=== PATIENT | female | born 1955 | race Caucasian/White ===

== ENCOUNTER 2025-01-24 09:36 | Outpatient (CLI) | payer MEDICARE, SELFPAY ==
--- NOTE | 2025-01-24 | ECHO_ITS ---
Patient Info Name: Ginette Glez Age: 69 years : 1955 Gender: Female Ht: 66 in Wt: 174 lbs BSA: 1.94 m2 BP: 160 / 91 mmHg Technical Quality: Good Exam Date: 01/24/2025 10:18 AM Patient Status: O Admit Date: 01/24/2025 Exam Type: CA echo doppler color flow Complete two-dimensional, color flow and Doppler transthoracic echocardiogram is performed. [employer] Supervisor: Estefani Taveras Attending Provider: Gayatri Haines Summary 1. Complete two-dimensional, color flow and Doppler transthoracic echocardiogram is performed. 2. There is normal biventricular size and systolic function. 3. There is severe aortic stenosis. Left Ventricle The left ventricle is normal in size and systolic function. There is concentric left ventricular remodeling. The left ventricular ejection fraction is visually estimated to be 60-65%. Right Ventricle The right ventricle is normal in size and systolic function. Left Atria The left atrium is normal size. Right Atria The right atrium is normal size. Atrial Septum The atrial septum is visually intact. Aortic Valve The aortic valve is trileaflet and calcified. There is severe aortic stenosis. There is mild aortic regurgitation. Pulmonic Valve The pulmonic valve is not well visualized. There is trace pulmonic valve regurgitation. Mitral Valve The mitral valve leaflets are normal. There is mitral annular calcification. There is trace mitral regurgitation. Tricuspid Valve The tricuspid valve is normal. There is trace tricuspid regurgitation. Pericardium/Pleural Pericardium is normal in appearance with no evidence for significant pericardial effusion. Inferior Vena Cava Normal inferior vena cava with >50% collapse upon inspiration consistent with normal right atrial pressure, 3 mmHg. Aorta The aortic root at the level of the sinus of Valsalva measures 2.7 cm in diameter. Left Ventricular Outflow Tract Name Value Normal LVOT 2D LVOT Diameter 2.0 cm LVOT Doppler LVOT Peak Velocity 99 cm/s LVOT Peak Gradient 3 mmHg LVOT Mean Gradient 2 mmHg LVOT VTI 27 cm LVOT VTI/AV VTI Ratio 0.3 LVOT Stroke Volume 86 ml LVOT CO 5.7 l/min LVOT CI 2.9 l/min/m2 Pulmonic Valve Name Value Normal RVOT Doppler RVOT Peak Velocity 98 cm/s RVOT Peak Gradient 4 mmHg PV Doppler PV Peak Velocity 98 cm/s PV Peak Gradient 4 mmHg Mitral Valve Name Value Normal MV Diastolic Function MV E Peak Velocity 90 cm/s MV A Peak Velocity 136 cm/s MV E/A 0.7 MV Decel Time (PW) 322 ms MV Annular TDI MV E/e' (Septal) 16.2 MV E/e' (Lateral) 17.1 MV E/e' (Average) 16.6 Tricuspid Valve Name Value Normal Estimated PAP/RSVP RA Pressure 3 mmHg <=5 Aortic Valve Name Value Normal AV Doppler AV Peak Velocity 433 cm/s AV Peak Gradient 50 mmHg AV Mean Gradient 28 mmHg AV VTI 110 cm AV Area (Cont Eq VTI) 0.8 cm2 >=3.0 AV Area (Cont Eq Michelet) 0.7 cm2 AV DI (Michelet) 0.23 AV Regurgitation 2D LVOT Area 3.1 cm2 Ventricles Name Value Normal LV Dimensions 2D/MM IVS Diastolic Thickness (2D) 1.1 cm 0.6-1.0 LVID Diastole (2D) 4.4 cm 3.8-5.2 LVIW Diastolic Thickness (2D) 1.1 cm 0.6-0.9 LVID Systole (2D) 3.0 cm 2.2-3.5 LVOT Diameter 2.0 cm LV Mass (2D Cubed) 171.00 g 67.00-162.00 LV Mass Index (2D Cubed) 88 g/m2 43-95 Relative Wall Thickness (2D) 0.52 <=0.42 LV Fractional Shortening/Ejection Fraction 2D/MM LV Fractional Shortening (2D) 32 % 27-45 LV EF (2D Teichholz) 61 % LV Diastolic Volume (4C MOD) 84 ml LV EF (4C MOD) 58 % LV Diastolic Volume (2C MOD) 80 ml LV EF (2C MOD) 52 % LV Diastolic Volume (BP MOD) 82 ml 46-106 LV Diastolic Volume Index (BP MOD) 43 ml/m2 29-61 LV Systolic Volume (BP MOD) 37 ml 14-42 LV Systolic Volume Index (BP MOD) 19 ml/m2 8-24 LV EF (BP MOD) 55 % 54-74 LV Diastolic Length (4C) 8.3 cm LV Systolic Length (4C) 7.0 cm LV Stroke Volume (4C MOD) 49 ml Atria Name Value Normal LA Dimensions LA Volume (4C A-L) 55 ml LA Volume (BP A-L) 59 ml RA Dimensions RA Systolic Major Hepzibah Length (4C) 4.8 cm 2.2-2.8 RA Area (4C) 12.4 cm2 <=18.0 Report Signatures
--- OUTSIDE RECORDS SUMMARY | 2025-01-24 10:21 | XMS_ITS | Data Portability ---
Author Organization ROBERTO Blaze MÉNDEZ Address [address] [place] [address] Care Team Providers Care Pastoral Counselor Name Role Phone PAT BABB Hvac Installer [phone] Assessment No assessment recorded. Plan of Treatment Reminders Order Date Submit Date Provider Last Modified By Organization Details Last Modified Time Details Appointments None recorded . Lab Hepatiti s C IgG Ab, qual, serum 2024 025 [facility], [address] [place] [address], [place] [address], [place], [address], 11:17:33 lipid panel, serum 2024 025 [facility], [address] [place] [address], [place] [address], [place], [address], 11:17:34 CMP, serum or plasma 2024 025 [facility], [address] [place] [address], [place] [address], [place], [address], 11:17:36 CBC w/ auto diff 2024 025 [facility], [address] [place] [address], [place] [address], [place], [address], 11:17:44 urinalys is macro (dipstic k) panel, urine 2024 025 [facility] [place] [facility], [address], [address], [place], [address], 5 18:00:08 TSH, ultra-se nsitive, serum 2024 025 [facility], [address] [facility], [address], [place], [address], 5 11:17:41 HbA1c (hemoglo bin A1c), blood 2024 025 [facility], [address], [address], [place], [address], 5 11:17:43 lipid panel, serum 2020 021 [facility], [address] [facility], [address], [place], [address], 1 11:23:22 CMP, serum or plasma 2020 021 [facility], [address] [facility], [address], [place], [address], 1 11:23:[address] referral 2024 025 parul Polo MD, [address] [facility] [address], [place], [address], 5 10:20:13 Procedures None recorded . Surgeries None recorded . Imaging MAMMO, screenin g, digital, bilatera l [id number] [place] [address] (Imaging), [address] [facility] [address], [place], [address], 5 16:30:13 DEXA 2024 025 [facility] (Imaging), [address], [place], [address], 5 16:13:27 US, echocard iogram, transtho racic, complete , w/ color flow - Heart Murmur, history of Syncope 2024 025 [facility] (Imaging), [address] [facility], [place], [address], 5 16:13:26 bone density [address] ([facility]), [address] [place], [address], 3 14:03:42 MAMMO, screenin g, bilatera l [address] ([facility]), [address] [place], [address], 3 14:03:41 XR, humerus, 2 or more view 2019 020 [facility] ([facility]), [address] [place], [address], 0 12:20:45 MAMMO, screenin g, bilatera l 2019 020 [facility] ([facility]), [address] [place], [address], 0 15:24:54 Medication Orders levothyr oxine 50 mcg tablet 2020 021 [facility], [address] [facility], [place], [address], 5 10:57:58 compound ed medicati on 2019 020 [facility] #[id number], [address] [facility] [place], [id number], 0 16:55:56 multivit abreu tablet 2019 020 [facility] #10389, [address], [place], [place], [id number], 1 11:01:54 Calcium with Vitamin D 600 mg-10 mcg (400 unit) tablet 2019 020 [facility] #92607, [address], [place], [place], [id number], 1 11:01:00 levothyr oxine 50 mcg tablet 2019 020 [facility] #03245, [address], [place], [place], [id number], 5 10:57:58 Patient TargetsNo targets recorded. Patient Instructions Encounter Date Encounter Id Patient Instructions Last Modified By Organization Details Last Modified Time 11/01/2019 [id number] mammogram: about this test mwasserman Not available 11/01/2019 15:14:31 learning about menopause mwasserman Not available 11/01/2019 15:32:02 chronic obstructive pulmonary disease (COPD): care instructions mwasserman Not available 11/01/2019 15:45:47 learning about copd and how to prevent lung infections mwasserman Not available 11/01/2019 15:45:47 07/03/2021 [id number] hypothyroidism: care instructions [email or web address] Not available 07/03/2021 11:23:19 07/22/2022 [id number] well visit, over 65: care instructions Not available 07/22/2022 12:04:29 learning about breast cancer screening Not available 07/22/2022 12:05:06 KISHA Guo Discussed with ELIZABETH Márquezopassemmett Not available 07/22/2022 12:23:46 12/21/2024 [id number] mammogram: about this test oajao Not available 12/21/2024 11:27:54 hypothyroidism: care instructions oajao Not available 12/21/2024 11:29:12 heart murmur: care instructions oajao Not available 12/21/2024 11:27:54 Labs TTE GI DEXA MMG Shingrix/Prevnar 20 on her next visit Follow up in 8 weeks oajao Not available 12/21/2024 15:06:54 Reason for Referral Bed Placement Coordinator Referral for Tubular adenomatous polyp of colon Tubular adenoma 04/07/2016, history of a previous syncopal event po Referring Physician: Gayatri Haines, Internal Medicine, Encounter Date: 12/21/2024 Results Created Date Observation Date Name Description Value Unit Range Abnormal Flag Note LastModifiedBy Organization Detail LastModifiedTime 07/17/20 20 07/17/2020 MAMMO , scree ray, bilat eral No observ ation record ed. [facility] [address] [place], [address], 08/07/2020 10:25:08 07/17/20 20 07/17/2020 XR, humer us, 2 or more view No observ ation record ed. [facility] [address] [place], [address], 07/17/2020 15:11:33 07/17/20 20 07/17/2020 XR, humer us, 2 or more view No observ ation record ed. [facility] ([facility]) [address] [place], [address], 07/23/2020 16:18:54 Result Notes None recorded. Problems Name Problem SNOMED Code Status Onset Date Resolution Date Notes Provider Name and Address Organization Details Recorded Time Hypothyroidism 86910366 Active Delmy Escudero MD Attn: Sherryfranky montes,[address] [facility], [place], [address], [facility] 7 10:59:25 Menopausal and postmenopausal disorders 857940867 Active Zachary Mao null, [place] - [facility] 6 11:23:24 Tinea corporis 37241159 Active Delmy Escudero MD Attn: Accountin g,[address] [place], [place], [address] [place] [address] 2, [place] - [facility] 5 10:31:26 Anterior knee pain 940997832 Active Delmy Escudero MD Attn: Accountin g,[address] [place], [place], [address] [place] [address] 2, [place] [facility] 5 10:31:26 Obesity 824486281 Active Gayatri Haines MD Attn: Accountin g,[address] [place], [address] [place] [address] 2, [place] [facility] 5 11:18:02 Onychomycosis 257211679 Active Delmy Escudero MD Attn: Accountin g,[address] [place], [address] [place] [address] 2, [place] [facility] 5 10:31:26 Tinnitus 26215584 Active Delmy Escudero MD Attn: Accountin g,[address] [place], [address] [place] [address] 2, [place] [facility] 5 10:31:26 Menopause present 234935841 Active Delmy Escudero MD Attn: Accountin g,[address] [place], [address] [place] [address] 2, [place] - [facility] 6 11:14:11 Hypercholester olemia 01055328 Active 2024 Gayatri Haines MD Attn: Accountin g,[address] [place], [address] [place] [address] 2, [place] [facility] 5 15:05:19 Tubular adenomatous polyp of colon 904653412 Active 2024 Gayatri Haines MD Attn: Accountin g,[address] [place], [address] [place] [address] 2, [place] - [facility] 5 15:05:23 Granulomatosis Active Delmy Escudero MD Attn: Xi montes,[address], [place], [address], [facility] 6 11:14:11 Skin lesion 56866950 Active Delmy Escudero MD Attn: Xi montes,[address], [place], [address], [facility] 6 11:14:11 Problem Notes None recorded. Procedures Surgical History Date Name Laterality Status Provider Name and Address Organization Details Recorded Time 07/17/20 20 Date of Last Mammogram completed Portia Schneider MA [facility] 07/22/2022 11:50:32 04/07/20 16 screening colonoscopy completed Gayatri Haines MD Attn: Accounting,[address] [facility], [place], [address], [facility] 12/21/2024 11:05:40 03/22/20 16 Most Recent Mammogram completed Jamaica Lang MA [facility] 11/01/2019 15:12:12 11/08/19 15 Date of Last Pap Smear completed Jamaica Lang MA [facility] 11/01/2019 15:11:57 08/15/18 90 Oophorectomy completed Loli Soto MA [facility] 11/06/2014 11:08:28 08/15/18 70 Appendectomy completed Loli Soto MA [facility] 11/06/2014 11:08:28 excision of bunion completed Gayatri Haines MD Attn: Accounting,[address] [facility], [place], [address], [facility] 12/21/2024 11:03:04 operation on shoulder joint completed Gayatri Haines MD Attn: Accounting,[address] [facility], [place], [address], [facility] 12/21/2024 11:03:16 decompression of median nerve completed Gayatri Haines MD Attn: Accounting,[address] [facility], [place], [address], [facility] 12/21/2024 11:03:31 Imaging Results None recorded. Procedure Notes None recorded. Medical Equipment None Reported. Allergies No known drug allergies Medications Name Sig Start Date Stop Date Status Note LastModified by Organization Details LastModified Time compounded medication APPLY 0.2ML TWICE DAILY active Not Available Not Available No t Available compounded medication APPLY 0.2ML TWO TIMES A DAY 07/22 completed Not Available Not Available Not Available compounded medication APPLY 0.2ML DIRECTED TWO TIMES A DAY 07/03 completed Not Available Not Available Not Available compounded medication APPLY 0.2 ML TWICE DAILY 09/26 completed Not Available Not Available Not Available baclofen 10 mg tabs 10/31 completed Not Available Not Available Not Available meloxicam 15 mg tabs 10/31 completed Not Available Not Available Not Available compounded medication APPLY 0.2 ML TWO TIMES A DAY 09/26 completed Not Available Not Available Not Available acetaminoph en/codeine phosphate 300-30 mg tabs 10/31 completed Not Available Not Available Not Available compounded medication APPLY 0.2ML TWICE DAILY. active Not Available Not Available No t Available levothyroxi ne sodium 50 mcg tabs 10/31 completed Not Available Not Available Not Available compounded medication APPLY 0.2ML DIRECTED TWO TIMES A DAY active Not Available Not Available No t Available compounded medication APPLY 0.2ML TWO TIMES A DAY 09/26 completed Not Available Not Available Not Available compounded medication APPLY 0.2ML TWO TIMES A DAY active Not Available Not Available No t Available acetaminoph en/codeine 300-30 mg tabs 10/31 completed Not Available Not Available Not Available compounded medication APPLY 02. ML TWICE DAILY active Not Available Not Available No t Available compounded medication APPLY 0.2ML TWO TIMES A DAY active Not Available Not Available No t Available compounded medication APPLY 0.2 ML TWICE DAILY 09/26 completed Not Available Not Available Not Available compounded medication APPLY 0.2ML TWO TIMES A DAY active Not Available Not Available No t Available compounded medication APPLY 0.2 ML TWO TIMES A DAY active Not Available Not Available No t Available compounded medication APPLY 0.2 ML TWO TIMES A DAY 09/26 completed Not Available Not Available Not Available compounded medication APPLY 0.2ML TWICE DAILY. active Not Available Not Available No t Available compounded medication APPLY 0.2ML DIRECTED TWO TIMES A DAY 10/31 completed Not Available Not Available Not Available compounded medication as directed 09/26 completed Not Available Not Available Not Available compounded medication APPLY 0.2ML TWO TIMES A DAY 09/26 completed Not Available Not Available Not Available compounded medication APPLY 02. ML TWICE DAILY 09/26 completed Not Available Not Available Not Available compounded medication APPLY 0.2ML TWO TIMES A DAY active Not Available Not Available No t Available multivitami n tablet Take 1 tablet every day by oral route. 07/03 completed Not Available Not Available Not Available albuterol sulfate 2.5 mg/3 mL (0.083 %) solution for nebulizatio n Inhale 3 mL as needed by nebulizat ion route as directed for 1 day. 09/26 completed Not Available Not Available Not Available meloxicam 15 mg tablet Take 1 tablet every day by oral route after meals for 30 days. 05/22 completed Not Available Not Available Not Available lidocaine 4 % topical cream Apply 1 applicati on 4 times a day by topical route as needed for 30 days. 05/22 completed Not Available Not Available Not Available Zithromax Z-Darrell 250 mg tablet TAKE 2 TABLETS (500 MG) BY ORAL ROUTE ONCE DAILY FOR 1 DAY THEN 1 TABLET (250 MG) BY ORAL ROUTE ONCE DAILY FOR 4 DAYS 09/26 completed Not Available Not Available Not Available acetaminoph en 300 mg-codeine 30 mg tablet 05/22 completed Not Available Not Available Not Available sulfamethox azole 800 mg-trimetho prim 160 mg tablet Take 1 tablet every 12 hours by oral route after meals for 10 days. 07/20 completed Not Available Not Available Not Available triamcinolo ne acetonide 0.1 % topical cream APPLY A THIN LAYER TO THE AFFECTED AREA(S) BY TOPICAL ROUTE 2 TIMES PER DAY 07/20 completed Not Available Not Available Not Available baclofen 10 mg tablet Take 1 tablet 3 times a day by oral route around the clock for 30 days. 05/22 completed Not Available Not Available Not Available levothyroxi ne 50 mcg tablet TAKE 1 TABLET BY MOUTH ONCE DAILY FOR 90 DAYS 12/21 completed Not Available Not Available Not Available cephalexin 500 mg capsule TAKE 1 CAPSULE BY MOUTH EVERY 6 HOURS FOR 7 DAYS DIRECTED 07/22 completed Not Available Not Available Not Available nystatin 100,000 unit/gram topical cream APPLY TO THE AFFECTED AREA(S) BY TOPICAL ROUTE 2 TIMES PER DAY 07/20 completed Not Available Not Available Not Available mupirocin 2 % topical ointment APPLY A SMALL AMOUNT TO THE AFFECTED AREA OF TOENAIL THREE TIMES DAILY. 12/21 completed Not Available Not Available Not Available clobetasol 0.05 % topical ointment APPLY A THIN LAYER TO THE AFFECTED AREA(S) ON THE SKIN TWICE DAILY 12/21 completed Not Available Not Available Not Available estradiol 0.01% (0.1 mg/gram) vaginal cream INSERT 1 GRAM VAGINALLY THREE TIMES A WEEK DIRECTED 07/22 completed Not Available Not Available Not Available methylpredn isolone 4 mg tablets in a dose pack FOLLOW PACKAGE DIRECTION S 12/21 completed Not Available Not Available Not Available ketoconazol e 2 % topical cream 07/03 completed Not Available Not Available Not Available naproxen 500 mg tablet TAKE 1 TABLET BY MOUTH EVERY 12 HOURS NEEDED FOR PAIN, TAKE WITH FOOD. 12/21 completed Not Available Not Available Not Available Ventolin HFA 90 mcg/actuati on aerosol inhaler Inhale 2 puffs every 4 hours by inhalatio n route as needed for 30 days. 09/26 completed Not Available Not Available Not Available Premarin 0.625 mg/gram vaginal cream Insert 1 g twice a week by vaginal route. 07/20 completed Not Available Not Available Not Available Adacel (Tdap Adolesn/Emmanuel lt)(PF)2Lf- (2.5-5-3-5m cg)-5 Lf/0.5 mL IM susp 07/20 completed Not Available Not Available Not Available Zostavax (PF) 19,400 unit/0.65 mL subcutaneou s suspension 07/20 completed Not Available Not Available Not Available Calcium with Vitamin D 600 mg-10 mcg (400 unit) tablet Take 1 tablet twice a day by oral route. 07/03 completed Not Available Not Available Not Available GaviLyte-N 420 gram oral solution 07/20 completed Not Available Not Available Not Available Prevnar 13 (PF) 0.5 mL intramuscul ar syringe 07/20 completed Not Available Not Available Not Available Afluria 3302-3912 (PF) 45 mcg(15 mcg x 3)/0.5 mL intramuscul ar syringe 07/20 completed Not Available Not Available Not Available Vitals Date Recorded Systolic blood pressure Diastolic blood pressure Provider Name and Address Organization Details Last Updated DateTime 11/01/2019 150 mm[Hg] 70 mm[Hg] Delmy Escudero MD Attn: Accounting, [place], [address], [facility] 11/01/2019 17:10:04 Date Recorded Body height Body mass index (BMI) Body weight Body temperature Oxygen saturation Oxygen saturation in Arterial blood by Pulse oximetry Heart rate Systolic blood pressure Diastolic blood pressure Provider Name and Address Organization Details Last Updated DateTime 0 167.64 cm 29.7 kg/m2 59691.2 8 g 98.1 [degF] 95 % 95 % 77 /min 136 mm[Hg] 74 mm[Hg] Nino Simmons [place] [facility] 0 17:03:59 Date Recorded Body height Body mass index (BMI) Body weight Systolic blood pressure Diastolic blood pressure Provider Name and Address Organization Details Last Updated DateTime 11/01/2019 167.64 cm 29.5 kg/m2 84615.4 g 130 mm[Hg] 76 mm[Hg] Jamaica Lang [place] [facility] 0 15:15:39 Date Recorded Respiratory rate Provider Name a az Address Organization Details Last Updated DateTime 12/21/2024 14 /min Gayatri Haines MD Attn: Accounting,[address] [place], [address], [place] [facility] 12/21/2024 15:05:03 Date Recorded Body height Body mass index (BMI) Body weight Heart rate Oxygen saturation Oxygen saturation in Arterial blood by Pulse oximetry Body temperature Systolic blood pressure Diastolic blood pressure Provider Name and Address Organization Details Last Updated DateTime 5 164.47 cm 31 kg/m2 46051.5 9 g 92 /min 96 % 96 % 98 [degF] 140 mm[Hg] 80 mm[Hg] Anali Kraft MA [facility] 5 10:43:58 Date Recorded Body height Body mass index (BMI) Body weight Body temperature Oxygen saturation Oxygen saturation in Arterial blood by Pulse oximetry Heart rate Systolic blood pressure Diastolic blood pressure Provider Name and Address Organization Details Last Updated DateTime 1 164.47 cm 32.7 kg/m2 65396.7 9 g 97.9 [degF] 98 % 98 % 76 /min 156 mm[Hg] 92 mm[Hg] Nino Simmons [place] [facility] 1 11:10:12 Date Recorded Body height Body mass index (BMI) Body weight Systolic blood pressure Diastolic blood pressure Provider Name and Address Organization Details Last Updated DateTime 07/22/2022 164.47 cm 32.4 kg/m2 86020.33 g 140 mm[Hg] 102 mm[Hg] Portia Schneider [place] [facility] 2 11:53:17 Social History Question Answer Notes LastModified by Organizat ion Details LastModified Time Tobacco Smoking Status Former Smoker Stopped 40 years Gayatri Haines MD Attn: [facility] [place], [address], [facility] 12/21/2024 11:02:55 Do You Have An Advance Directive? No [email or web address] Information not available 11/06/2014 How Many Years Have You Consumed Alcohol? 30 Information not available 12/21/2024 Is Blood Transfusion Acceptable In An Emergency? Yes [email or web address] Information not available 11/06/2014 What Is Your Level Of Caffeine Consumption? Moderate [email or web address] Information not available 11/06/2014 How Much Tobacco Do You Chew? None [email or web address] Information not available 11/06/2014 What Type Of Diet Are You Following? DIABETIC Tries To Stay From [facility] [email or web address] Information not available 11/06/2014 Education 2 Year College Information not available 11/06/2014 Live Alone Or With Others? With Others [email or web address] Information not available 11/06/2014 What Was The Date Of Your Most Recent Tobacco Screening? 12/21/2024 [email or web address] Information not available 12/21/2024 How Many Children Do You Have? 2 Information not available 11/06/2014 What Is Your Current Pack Years? [email or web address] Information not available 12/21/2024 Performs Monthly Self-breast Exam? No Information not available 11/06/2014 What Is Your Relationship Status? [email or web address] Information not available 11/06/2014 Seat Belts Used Routinely Yes [email or web address] Information not available 11/06/2014 Are You Sexually Active? No [email or web address] Information not available 11/06/2014 Do You Have Smoke And Carbon Monoxide Detectors In Your Home? Yes Information not available 07/22/2022 At What Age Did You Start Smoking Tobacco? 23 Information not available 12/21/2024 Are You Passively Exposed To Smoke? No Information not available 07/22/2022 How Much Tobacco Do You Smoke? No Information not available 12/21/2024 General Stress Level Medium [email or web address] Information not available 11/06/2014 Do You Use Sunscreen Routinely? No [email or web address] Information not available 11/06/2014 Has Tobacco Cessation Counseling Been Provided? No Information not available 07/22/2022 How Many Years Have You Smoked Tobacco? 2 Information not available 12/21/2024 Sex: Unknown Functional Status Question Answer Note LastModified by Organizat ion Details LastModified Time Do you use any illicit or recreational drugs? Yes Marijuana Information not available 12/21/2024 Do you or have you ever used any other forms of tobacco or nicotine? No Information not available 07/22/2022 What is your level of alcohol consumption? Occasional [email or web address] Information not available 11/06/2014 Are you currently employed? 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 None [email or web address] Information not available 11/06/2014 Mental Status None recorded. Family History Relationship Description Onset Age of this Age Resolved Age Notes LastModified by Organization Details LastModified Time Brother Diabetes mellitus [email or web address] Not available 11/06 18:10:19 Father Heart disease [email or web address] Not available 11/06 18:10:19 Maternal Aunt Malignant tumor of breast 45 [email or web address] Not available 11/06 18:10:19 Medical History Condition Response Coronary Artery Disease N Blood Diseases N Kidney Cyst N Hyperthyroidism N Blood disorders N MRSA Y Blood Transfusion N Emphysema N Blood Clots N COPD N Depression N Pneumonia N Peripheral Arterial Disease N Premature N Edema N TIA N Headaches/Migraines N Anxiety Disorder N Obesity Y Infertility N Polyps N Acid Reflux (GERD) N Hematuria N Stroke N Neck Injury N Polio N Hospital Admission other than N Neurologic Disorder N Other Sleep Disorders Y Rheumatoid Arthritis N Fibromyalgia N Abdominal Aortic Aneurysm Repair N Kidney Disease N Heart Conditions N Heart Disease/Heart Problems N Hospitalizations N Brain Tumors N Acne N Eating Disorder N Skin Problems N Constipation N Meningitis N Tuberculosis N Cerebral Palsy N Myocardial Infarction N Asthma N Substance Abuse N Peripheral Vascular Disease N Vertigo N Sleep Disorder N Cirrhosis N Pulmonary Embolism N Chicken Pox Y Flomax Use Past or Present N Hematologic Disease N Anxiety/Depression N Thyroid Disease N Colon Cancer N Glaucoma N Lung Disease N Developmental or Behavioral Disorders N Bipolar N Pacemaker N Diverticulitis/Diverticulosis N Anesthesia Complications N Orthopedic Problems N Orthotics N Head Injury/Concussion N Congenital Anomalies N Rosenthal Bite N Chronic Kidney Disease N Endometriosis N Liver Disease N Dialysis N Schizophrenia N Speech Delay N Chronic Obstructive Pulmonary Disease N Parkinson's Disease N Thyroid Problems N GI Problems N Developmental Delay N Anemia N Immune System Disorder N Multiple Sclerosis N Colon Polyps N Heart Attack (MD) N Diabetes N Cardiomyopathy N Blood Transfusions N Heart Problems/Murmur Y Eye Trauma N Congestive Heart Failure (CHF) N Valvular Heart Disease N Hyperlipidemia N Double Vision N Abuse/Domestic Violence N Hepatitis B Y Lupus N Epilepsy/Seizures N Reflux/GERD N Aneurysm N Bronchitis N Heart Disease N Hypertension N Pre-Eclampsia N Heart Failure N Other N Gout N High Blood Pressure N Atrial Fibrillation N Kidney Stones N Head Trauma/Injury N Congenital Heart Disease N Spine Problems N Gastrointestinal Disease N Lung Mass N Sinusitis N Obstructive Sleep Apnea N Muscle, Joint, or Bone Problems N Autoimmune disease N Vision or Eye Problems N Arthritis N Blood Clot N Cancer N Seasonal allergies N Leg or Foot Ulcers N Raynaud's Disease N Aortic Aneurysm N Arrhythmia N Headaches N Heart Problems N Ambloypia N Ear or Hearing Problems N Hyperparathyroidism N Migraines N Artificial Joints N Kidney or Bladder Problems N NSAID Use N Encephalitis N PTSD N Ulcers N Prostate Hypertrophy N Bleeding Disorder N AIDS/HIV N Urinary Tract Infection N Back Problems N Allergies Y Atrial Flutter N GERD/Reflux N Hepatitis N Autism Spectrum Disorder (ASD) N Breast Cancer N Hernia N Hypothyroidism N Breast Problem N Genitourinary Disease N Deep Vein Thrombosis N Varicose Veins N Cystic Fibrosis N Hearing Loss N Developmental Problems N Carotid Disease N Vitamin D Deficiency N ADHD N Bladder or Kidney Problems N High Cholesterol Y Meniers N Valvular Abnormalities N Psychiatric/Mental Health Condition N Organ Transplant N Foot Deformity N Allergies/Hayfever N Dyslipidemia N Hyponatremia N Diabetic Eye Disease N Osteoporosis/Osteopenia N Back Pain N Proteinuria N Mental Illness N Neurological Problems N Ovarian Cancer N Bedwetting N Seizures/Epilepsy N Kidney Failure N Ocular trauma N Dementia N Diverticulitis N Sleep Apnea N Mental Problems N Warfarin Management N Osteoporosis N Gynecological History Statement/Question Response If Post Menopausal, Age at Menopause 48 Date of Last Mammogram 07/17/2020 Sexually Active? N Menses Monthly N STIs/STDs Y Date of Last Pap Smear 11/07/2014 Sexual Problems? N Age at Menarche 11 Most Recent Mammogram 03/22/2016 Age at First Child 23 Obstetrics History GPAL:G 3 P 2 0 1 2 Type Value Multiple Births 0 Full Term 2 Induced 1 Spontaneous 0 Premature 0 Living 2 Ectopics 0 Total 3 Immunizations Vaccine Type Date Status Note Provider Nam e and Address Organization Details Recorded Time COVID-19 vaccine, vector-nr, rS-Ad26, PF, 0.5 mL 1 completed JEN [place], [place] - [facility] 12/21/2024 10:39:16 influenza, seasonal, intradermal, preservative free 3 completed Not Available [facility] 12/21/2024 10:28:17 zoster live 6 completed Not Available [facility] 12/21/2024 10:28:17 Pneumococcal conjugate PCV 13 6 completed Not Available [facility] 12/21/2024 10:28:17 Tdap 6 completed Not Available [facility] 12/21/2024 10:28:17 Influenza, split virus, trivalent, PF 6 completed Not Available [facility] 12/21/2024 10:28:17 zoster recombinant 5 completed Anali Kraft MA [facility], [place] - [facility] 12/21/2024 15:27:03 Past Encounters Encounter ID Performer Location Encounter Start Date Encounter Closed Date Diagnosis/Indication Diagnosis SNOMED-CT Code Diagnosis ICD10 Code Diagnosis Note [id number] MD Gavin Marrero (Adult Med) [address] [place] [address] [id number] 0 09/13/2014 11:51:37 09/13/2014 18:08:28 Hypothyroidism 70585148 Menopausal and postmenopausal disorders 415311346 Tinea corporis 71591151 Anterior knee pain 436663210 Obesity 607516145 Onychomycosis 114895243 Tinnitus 59994936 [id number] MD Gavin Macias (ENTRY LEVEL CIVIL ENGINEER) [address] [place] [address] [id number] 0 11/06/2014 10:24:07 11/06/2014 12:19:44 Screening for malignant neoplasm of breast 170983459 Screening for malignant neoplasm of cervix 454733635 Menopause present [id number] [id number] [facility] [address] [place] [address] 16201-281 0 05/19/2015 16:17:20 05/21/2015 14:38:18 Hypothyroidism 53370043 E03.9 Obesity 851499062 E66.9 [id number] MD Gavin Marrero (Adult Med) [address] [place] [address] [id number] 0 02/11/2016 09:54:55 02/11/2016 11:15:57 Hypothyroidism 99931339 E03.9 Menopause present 394243 006 N95.1 Screening for malignant neoplasm of breast 352986287 Z12.31 Screening for malignant neoplasm of cervix 203165614 Z12.4 Obesity 914194869 E66.9 Granulomatosis 51073858 L92.9 Skin lesion 75885752 L98 .9 Screening for malignant neoplasm of colon 277278960 Z12.11 [id number] MD Gavin Marrero (Adult Med) [address] [place] [address] 75682-611 0 07/21/2016 09:55:08 07/21/2016 11:01:11 Hypothyroidism 07596461 E03.9 Menopausal and postmenopausal disorders 024506390 N95.9 Screening for osteoporosis 203894219 Z13.820 Adult heal th examination 978587733 Z00.00 [id number] MD Gavin Marrero (Adult Med) [address] [place] [address] [id number] 0 01/19/2017 09:50:49 01/19/2017 11:04:59 Furunculosis of skin AND/OR subcutaneous tissue 42951639 L02.92 Hypothyroidism 69814262 E03.9 [id number] MD Gavin Macias (ENTRY LEVEL CIVIL ENGINEER) [address] [place] [address] 86785-706 0 04/20/2017 16:21:55 04/25/2017 14:00:13 Pyogenic granuloma of skin 66404490 L98.0 Patient was instructed on vaginal washing care and encouragem ent for the use of conditioni ng shampoo for bathing. [id number] MD Gavin Marrero (Adult Med) [address] [place] [address] [id number] 0 07/20/2017 09:57:55 07/20/2017 11:18:54 Osteoarthritis 683567043 M19.90 Left hip., on vitamin d and calcium, and glucosamin ORC. Acute bronchitis 3541864 2 J20.9 Chronic ob structive pulmonary disease 42302283 J44.9 Nicotine dependence 5629 4008 F17.200 Hypothyroidism 80468008 E03.9 [id number] MD Gavin Marrero (Adult Med) [address] [place] [address] [id number] 0 09/26/2018 14:32:02 09/27/2018 11:58:53 Hypothyroidism 57677294 E03.9 [id number] MD Gavin Marrero (Adult Med) [address] [place] [address] 52503-532 0 10/03/2018 14:49:27 10/04/2018 12:32:21 Pain in left knee 4267514658 46842 M25.562 Discussed with patient, she agreed. [id number] MD Gavin Marrero (Adult Med) [address] [place] [address] [id number] 0 05/22/2019 16:00:49 05/23/2019 10:11:51 Hypothyroidism 86742384 E03.9 Discussed with patient. Heart murmur 25185313 R0 1.1 Discussed with patient. [id number] MD Gavin Macias (ENTRY LEVEL CIVIL ENGINEER) [address] [place] [address] 96102-918 0 11/01/2019 14:59:23 11/02/2019 09:25:58 Screening mammography 07406819 Z12.31 Menopausal and postmenopausal disorders 009089546 N95.9 Hypothyroidism 62756670 E03.9 Chronic ob structive pulmonary disease 65371220 J44.9 Active or passive immunization 230326391 Z23 [id number] MD Gavin Marrero (Adult Med) [address] [place] [address] [id number] 0 11/01/2019 16:28:08 11/05/2019 08:52:14 Menopausal and postmenopausal disorders 354440923 N95.9 Under the care of her gynecologi st. Hypothyroidism 84086644 E03.9 Discussed with patient. [id number] MD Gavin Marrero (Adult Med) [address] [place] [address] [id number] 0 07/08/2020 08:15:45 07/09/2020 12:23:14 Pain in right arm 564910257 M79.601 pOSSIBLE SPRAIN /strain, SHE AGREED FOR THE X RAY FIRST. [id number] MD Gavin Marrero (Adult Med) [address] [place] [address] 46116-213 0 07/03/2021 10:10:26 07/06/2021 11:08:28 Hypothyroidism 24587429 E03.9 Discussed with patient. Hyperlipid emia screening 614339941 Z13.220 History of hypothyroi dism, she might have secondary dyslipidem ia [id number] HAIDER STONE (ENTRY LEVEL CIVIL ENGINEER) [address] [place] [address] [id number] 0 07/22/2022 11:28:00 07/28/2022 10:41:13 Gynecologic examination 40963369 Z01.419 Cervical cancer screening: Last Pap 2014 NILM, patient no longer needs pap screeningB reast cancer screening: Reviewed recommenda tions for initiation at age 40 with annual screening. Discussed SBE.Colono scopy: Last colonoscop y was 2019.Diet/ exercise: Counseled regarding importance of physical activity, healthy diet and appropriat e calcium intake.Cou nseled patient on discontinu ing hormone therapy as she does not have any menopausal symptoms and it is not indicated for use to prevent aging.RTC prn Screening for malignant neoplasm of breast 790416598 Z12.31 Pt's last mammogram was 2019, results were negative. Order placed for annual screening. Screening for osteoporosis 353061097 Z13.820 Patient has not had a DEXA scan in the past. DEXA scan ordered to screen for osteoporos is. [id number] MD Gavin Lux (Adult Med) [address] [place] [address] 75374-654 0 12/21/2024 10:26:40 12/26/2024 13:13:53 Postmenopausal state 05109376 Z78.0 Adult heal th examination 764137528 Z00.01 History of syncope 17135 27652 89395 Z87.898 Heart murmur 36124034 R0 1.1 Hypercholesterolemia 136 35758 E78.00 Requires v aricella vaccination 716300714 Z23 Clinical finding 0145987 03 Z72.89 Tubular ad enomatous polyp of colon 712253976 D12.6 Screening mammography 24 561717 Z12.31 History of chickenpox 16 2182641 Z86.19 Body mass index 30+ - obesity 958695515 Z68.31 Hypothyroidism 20624229 E03.9 Health Concerns Section Related Observation LastModified by Organization Detai ls LastModified Time None Recorded Concern Status LastModified by Organization Details LastModified Time None Recorded Advance Directives Directive N: Payers Insurance Date Sequence Insurance Name Policy Number Policy Franco Covered Member ID Franco Member ID Guarantor Name 12/26/2024 1 [facility] (MEDICARE REPLACEMENT/A DVANTAGE - HMO) [id number] Ginette Glez [id number] Ginette Glez 04/20/2017 SLIDING FEE SCHEDULE - DISCOUNT Ginette Glez 12/21/2024 1 [facility] [id number] Ginette Glez [id number] Ginette Glez 12/19/2016 PAYMENT PLAN Ginette Glez Notes Date Note Type Note Provider Name and Address Organization Details Recorded Time 11/01/2019 text/html 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 Post-MenopausalRepor gianna bypatient.Menopausal Symptoms:no menopausal symptoms; normal vaginal lubrication Vaginal Bleeding:history of menopause having occurred; no history of post menopausal bleeding Urinary Symptoms:no hematuria; no incontinence; no nocturia; no urinary frequency Vulva:no genital lesion; no vulvar atrophy Vagina:normal vaginal discharge; no vaginal atrophy Breast:no breast lump; no nipple discharge; no breast pain Sexual Complaints:no sexual complaints Psychological Symptoms:no depression; no anxiety 64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 NKDA. she has stopped ibuprofen. 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 Delmy Escudero MD Attn: Accounting[address] [place], [address], [facility] 07/08/2020 16:12:13 07/03/2021 text/html Office visit, NK DA. history of hypothyroidism, wants refill med. also has not had choleaterol chec, Delmy Escudero MD Attn: Accounting[address] [place], [address], [facility] 07/03/2021 11:32:28 07/22/2022 text/html 67-year-old F with a history of hypothyroidism and postmenopausal presents to clinic as new patient for medication refill. Patient states she is using a compound cream and vaginal estrogen cream on her arms as a preventative measure for aging. Patient reports vaginal pruritus starting awhile ago and denies hot flashes, mood swings, insomnia, depression. She denies history of liver disease, CVD, breast cancer, smoking. Patient's last pap was 2014, normal, and states she was getting her paps done regularly before reaching age limit. Patient's last mammogram was 2019, negative. History of left oophorectomy and appendectomy. HAIDER STONE Attn: Accounting[address] [place], [address], [facility] 07/27/2022 14:47:53 12/21/2024 text/html Just like a jarod dillon and joey 69 y/o WF who was last seen by Dr Escudero on 07/05/2021, in the interim, she has been following up with her manager urgent care. She has been out of her Levothyroxine for a few years. PMHX. Hypercholesterolemia , Hypothyroidism, Heart murmur, s/p syncopal episode and obesity. She had a syncopal episode after her colonoscopy and was referred for a 30 day Holter monitor which she returned after one day. She feels well and she has been doing very well. Gayatri Haines MD Attn: Accounting[address] [place], [address], [facility] 12/21/2024 15:07:38 OBGyn Episode Ob Episode Information Episode Created Date Number of Fetuses Patient Bloodtype Patient rh Status Prepregnancy Weight lbs Domestic Partner Domestic Partner Phone Father Name Container Crane Operator Status 11/07/19 15 1 CLOSED Fetus Data First Name Last Name Admitted to NICU Weight (g) Sex Living Outcome Pediatric Complications Fetus ID Race Codes Race Delivery Type 3542.55 352 M Full Term [id number] Vaginal Harjeet Calculation Initial Harjeet Date Initial Exam Date Initial Exam Provider Initial Ultrasound Date Last Menstrual Period Date Ultra Sound Weeks Gestation 0 Eighteen To Twenty Week Harjeet Update Ultra Sound Date Fundal Height At Umbil Quickening Date Ultra Sound Latest Weeks Gestation Final Harjeet Confirmed By Final Harjeet Confirmed Date Final Harjeet Date Ultra Sound Latest Days Gestation 0 0 Menstrual History Last Menstrual Date Menses Monthly On Bcp Conception Prior Menses Frequency Hcg Plus Date Menarche Onset Age Delivery Information Delivery Date Delivery Type Labor Anesthesia Weeks Gestation Incision Type Labor Labor Length Hrs Delivered By Post Complications Tubal Sterilization Discharge Date Comments 9 None Discharge Information Feeding Method Contraceptive Method Maternal HG B and HCT Levels Ob Episode Information Episode Created Date Number of Fetuses Patient Bloodtype Patient rh Status Prepregnancy Weight lbs Domestic Partner Domestic Partner Phone Father Name Container Crane Operator Status 11/07/19 15 1 CLOSED Fetus Data First Name Last Name Admitted to NICU Weight (g) Sex Living Outcome Pediatric Complications Fetus ID Race Codes Race Delivery Type 3120.71 296 F Full Term [id number] Vaginal Harjeet Calculation Initial Harjeet Date Initial Exam Date Initial Exam Provider Initial Ultrasound Date Last Menstrual Period Date Ultra Sound Weeks Gestation 0 Eighteen To Twenty Week Harjeet Update Ultra Sound Date Fundal Height At Umbil Quickening Date Ultra Sound Latest Weeks Gestation Final Harjeet Confirmed By Final Harjeet Confirmed Date Final Harjeet Date Ultra Sound Latest Days Gestation 0 0 Menstrual History Last Menstrual Date Menses Monthly On Bcp Conception Prior Menses Frequency Hcg Plus Date Menarche Onset Age Delivery Information Delivery Date Delivery Type Labor Anesthesia Weeks Gestation Incision Type Labor Labor Length Hrs Delivered By Post Complications Tubal Sterilization Discharge Date Comments 8 None ashley, mo Discharge Information Feeding Method Contraceptive Method Maternal HG B and HCT Levels
--- OUTSIDE RECORDS SUMMARY | 2025-01-24 10:21 | XMS_ITS | Data Portability ---
Author Organization [facility] [employer] , [facility] Address [address] [place] [address] Assessment No assessment recorded. Plan of Treatment Reminders Order Date Submit Date Provider Last Modified By Organization Details Last Modified Time Details Appointments None recorded. Lab None recorded. Referral None recorded. Procedures None recorded. Surgeries None recorded. Imaging None recorded. Medication Orders clobetasol 0.05 % topical ointment 2022 023 [id number], [address] [facility], [place], [address], 3 14:57:03 Patient TargetsNo targets recorded. Patient InstructionsNo instructions recorded. Reason for Referral None Reported. Medical Equipment None Reported. Allergies No known drug allergies Medications Name Sig Start Date Stop Date Status Note LastModified by Organization Details LastModified Time compounded medication APPLY 1/2 GRAM (2 CLICKS) TOPICALLY TWO TIMES A DAY active Not Available Not Available No t Available compounded medication APPLY 1/2 GRAM (2 CLICKS) TOPICALLY TWO TIMES A DAY active Not Available Not Available No t Available levothyroxine 50 mcg tablet TAKE 1 TABLET BY MOUTH ONCE DAILY FOR 90 DAYS active Not Available Not Available No t Available clobetasol 0.05 % topical ointment APPLY A THIN LAYER TO THE AFFECTED AREA(S) ON THE SKIN TWICE DAILY active Not Available Not Available No t Available Vitals Date Recorded Body height Body mass index (BMI) Body weight Body temperature Systolic blood pressure Diastolic blood pressure Provider Name and Address Organization Details Last Updated DateTime 3 167.64 cm 32 kg/m2 18716.2 9 g 96.7 [degF] 130 mm[Hg] 80 mm[Hg] Shelley Banegas [employer] [facility] 10:39:50 Social History Question Answer Notes LastModified by Organizat ion Details LastModified Time Tobacco Smoking Status Never Smoker Shelley Banegas null, [employer] [facility] 02/22/2023 10:36:12 Are You Blind Or Do You Have Difficulty Seeing? No [email or web address] Information not available 02/22/2023 Are You Deaf Or Do You Have Serious Difficulty Hearing? No Information not available 02/22/2023 What Type Of Diet Are You Following? REGULAR [email or web address] Information not available 02/22/2023 Which Illicit Or Recreational Drugs Have You Used? Marijuanna [email or web address] Information not available 02/22/2023 How Many Children Do You Have? 2 [email or web address] Information not available 02/22/2023 Are There Any Occupational Health Risks Where You Work? [employer] [facility] [facility] [email or web address] Information not available 02/22/2023 What Is Your Relationship Status? [email or web address] Information not available 02/22/2023 Are You Sexually Active? No [email or web address] Information not available 02/22/2023 Have You Used IV Drugs? No [email or web address] Information not available 02/22/2023 Sex: Unknown Functional Status Question Answer Note LastModified by Organizat ion Details LastModified Time How many times per week do you consume alcohol? 1-2 times per week [email or web address] Information not available 02/22/2023 Do you use any illicit or recreational drugs? Yes [email or web address] Information not available 02/22/2023 Do you or have you ever used any other forms of tobacco or nicotine? No [email or web address] Information not available 02/22/2023 What is your level of alcohol consumption? Occasional [email or web address] Information not available 02/22/2023 Are you currently employed? Yes [email or web address] Information not available 02/22/2023 What is your exercise level? Occasional [email or web address] Information not available 02/22/2023 Mental Status None recorded. Family History Nothing Reported Notes:mom sister had a breas t removed. Medical History Condition Response Other Cancer N High Blood Pressure N Colon Cancer N Cytomegalovirus N Hyperthyroidism N Herpes (HSV) N Breast Cancer N Blood Transfusion N MRSA N Lung Cancer N Hypothyroidism Y Depression N Incontinence N Panic Attacks N Neurological Disorder N Deep Vein Thrombosis N Anxiety Disorder N Autoimmune disease N Arthritis N Tuberculosis/Positive PPD N Shingles N Polycystic Ovarian Syndrome N Cervical Cancer N Chlamydia N Hematuria N Stroke N Varicosities N Crohn's Disease N Seasonal allergies N Alzheimer's/Dementia N COPD/Emphysema N HPV/Genital Warts N Endometriosis N IBS (Irritable Bowel Syndrome) N History of Abnormal Pap N High Cholesterol N Liver Disease N Kidney Infection N Fibromyalgia N Ulcer N Kidney Disease N HIV N Gallbladder disease N Sickle Cell Disease/Trait N Von Willebrand disease N ADD/ADHD N Eating Disorder N Anemia N Diabetes Mellitus (non-insulin dependent ) N Ovarian Problems N Multiple Sclerosis N Gonorrhea N Frequent Urinary Tract infections N Osteopenia N Headaches/migraines N GERD (reflux) N Ovarian Cancer N Diabetes (insulin dependent) N Seizures/Epilepsy N Fibroids N Heart Attack N Asthma N Lupus N Endometrial Cancer N Rubella N Blood Clotting Disorder N Bipolar Disorder N Diabetes Mellitus (during ) N Ulcerative Colitis N Hepatitis N Heart Disease N Pulmonary Embolism N RPR N Chicken Pox N Osteoporosis N Gynecological History Statement/Question Response If Post Menopausal, Age at Menopause 48 Date of Last Colonoscopy Most Recent Bone Density HPV Vaccine N Most Recent Mammogram Current Control Method Menopause Obstetrics History GPAL:G 2 P 0 0 0 2 Type Value Living 2 Total 2 Past Encounters Encounter ID Performer Location Encounter Start Date Encounter Closed Date Diagnosis/Indication Diagnosis SNOMED-CT Code Diagnosis ICD10 Code Diagnosis Note [id number] Renetta Lester MD [facility] [address] [place] [address] 02/22/2023 10:16:54 02/22/2023 17:40:31 Menopausal syndrome 429254305 N95.1 pt seeing me for bioidentic al HRT. I called the [facility] but they no longer have an active script on pt. She was on estradiol and progestero ne cream. Consider using [facility] for these Lichen scl erosus of vulva 262532397 N90.4 discussed LSA, autoimmune cause and reviewed treatment. Will send Clobetasol cream and have her use BID. RTC 4 wk Health Concerns Section Related Observation LastModified by Organization Detai ls LastModified Time None Recorded Concern Status LastModified by Organization Details LastModified Time None Recorded Advance Directives Directive None Recorded Payers Insurance Date Sequence Insurance Name Policy Number Policy Franco Covered Member ID Franco Member ID Guarantor Name 11/03/2024 1 [facility] (MEDICARE REPLACEMENT/A DVANTAGE - HMO) [id number] Ginette Glez [id number] Ginette Glez Notes Date Note Type Note Provider Name and Address Organization Details Recorded Time 02/22/2023 text/html Patient is here to because she needs a refill on bioidentical hormones her previous provider Dr Mao has retired. She has seen him since 2006. He was prescribing her hormone therapy and the new provider there does not prescribe bioidenticals.She used [facility] [phone] for these, but unfortunately, the pt does not have the formulations that she was on.She has been out for some time. She does not feel as well without them, has hot flashes, vaginal dryness, fatigue. She would like to resume the hormones. She has not had a hysterectomyWe do not have any medical records on herAdditionally, she reports chronic itching of the vulva, really bad for 3 months. Renetta Lester MD [address] [facility], [place], [address], [facility] 02/22/2023 14:58:16 OBGyn Episode No OBEpisode recorded.
== END 2025-01-24 09:37 | disposition home or self-care (01) ==
PROVIDERS: PCP Internal Medicine Infectious Disease; Visit Provider Internal Medicine Infectious Disease
DX: Z78.0 Asymptomatic menopausal state (principal); R01.1 Cardiac murmur, unspecified
CPT/HCPCS: 93306

== ENCOUNTER 2025-03-18 11:23 | Outpatient (CLI) | payer MEDICARE, SELFPAY ==
--- NOTE | ~2025-03-18 | XR_ITS ---
Right Shoulder Technique: AP and scapular Y views were obtained. Clinical History: Pain Findings: No fracture or dislocation is seen. Osseous alignment is anatomic. The glenohumeral joints intact. There is mild AC joint degenerative change. Soft tissues are unremarkable. Impression: Mild AC joint degenerative change. Reviewed, dictated and finalized at location . Impression: Mild AC joint degenerative change.
== END 2025-03-18 11:24 | disposition home or self-care (01) ==
PROVIDERS: PCP Internal Medicine Infectious Disease; Visit Provider Internal Medicine Infectious Disease
DX: M19.011 Primary osteoarthritis, right shoulder (principal); G89.29 Other chronic pain
CPT/HCPCS: 73030